=== PATIENT | female | born 1945 | race Two or more races ===

== ENCOUNTER 2022-01-30 19:18 | Inpatient (IN) | payer MEDICARE, OTHER ==
[~2022-01-30] VITALS: Ht 162.6 cm; Wt 62.6 kg
[2022-01-30] MEDS ORDERED: cefTRIAXone SOD 1,000 MG VL IV ONE (20:15)
[2022-01-30 20:19] LABS: Basophils # (auto) 0 10 ^3/uL (0-0.2); Basophils % (auto) 0.2 % (0.0-2.0); Eosinophils # (auto) 0 10 ^3/uL (0-0.8); Eosinophils % (auto) 0.1 % (0.0-7.0); Hematocrit 31.8 % (36.0-46.0); Hemoglobin 10.2 g/dL (12.2-16.2); Lymphocytes # (auto) 0.4 10 ^3/uL (0.4-5.4); Lymphocytes % (auto) 4.2 % (10.0-50.0); Mean Corpuscular Hemoglobin 28.6 pg (28.0-32.0); Mean Corpuscular Volume 89.5 fL (80.0-100.0); Monocytes # (auto) 0.6 10 ^3/uL (0-1.3); Monocytes % (auto) 6.2 % (0.0-12.0); Neutrophils # (auto) 8.5 10 ^3/uL (1.6-8.6); Neutrophils % (auto) 89.3 % (37.0-80.0); Nucleated Red Blood Cells % 0.4 %; Red Blood Cells 3.55 10^6/uL (4.0-5.20); Red Cell Distribution Width 17.5 % (11.8-14.3); White Blood Cell 9.5 10^3/uL (4.4-10.8)
[2022-01-30 20:41] LABS: Albumin 2.9 g/dL (3.4-5.0); Calcium 8.1 mg/dL (8.5-10.1)
[2022-01-30] MEDS ORDERED: dilTIAZem HCL 50 MG/10 ML VIAL IV ONE ×2 (20:44→21:13)
[2022-01-30 20:45] LABS: BUN/Creatinine Ratio 16.9; Bilirubin, Total 1.1 mg/dL (0.2-1.0); Total Protein 6.1 g/dL (6.4-8.2)
[2022-01-30] MEDS ORDERED: dilTIAZem 25 MG/5 ML VIAL IV ONE ×3 (20:45→21:15)
[2022-01-30 21:13] LABS: Lactic Acid w/Reflex 2.3 mmol/L (0.4-2.0)
[2022-01-30] MEDS ORDERED: AMIODARONE HCL 150 MG in D5W 5% 100 ML IV ONE (21:45)
[2022-01-30] MEDS ORDERED: SODIUM CHLORIDE 0.9% 1,000 ML IV ONE (21:45)
[2022-01-30] MEDS ORDERED: AMIODARONE 450mg/250ml AE 250 ML IV SCH (22:00)
[2022-01-30] MEDS ORDERED: AMIODARONE HCL (50 MG/ ML) 3 ML VIAL IV ONE (22:16)
[2022-01-30 23:12] LABS: Urine Bacteria NONE SEEN /hpf (None Seen); Urine Blood Negative /uL (Negative); Urine Hyaline Cast MOD /lpf (0 - 2); Urine Mucus FEW (None Seen); Urine Specific Gravity 1.018 (1.001-1.035); Urine WBC 1 /hpf (0 - 5)
[2022-01-30] MEDS ORDERED: MIDAZOLAM HCL 2MG/2ML 2ml VIAL (1mg/ml) IV ONE (23:30)
[2022-01-31] VITALS (63 sets, daily range): BP systolic 82–170; BP diastolic 57–115
[2022-01-31] MEDS ORDERED: DEXTROSE (50%) 50ML SYRG IV PRN (00:30)
[2022-01-31] MEDS ORDERED: ALBUMIN 25% 100 ML IV ONE (00:30)
[2022-01-31] MEDS ORDERED: ONDANSETRON HCL 4 MG/2 ML VIAL IV PRN (00:30)
[2022-01-31] MEDS ORDERED: ACETAMINOPHEN 325 MG TAB PO PRN (00:30)
[2022-01-31] MEDS ORDERED: DOCUSATE SOD 100 MG CAP PO PRN (00:30)
[2022-01-31] MEDS ORDERED: IOHEXOL 350 MG/ML 100ML IJ ONE ×3 (02:48→14:41)
[2022-01-31] MEDS ORDERED: ETOMIDATE (2MG/ML) 20ML VIAL IV ONE ×2 (03:37→03:45)
[2022-01-31] MEDS ORDERED: ROCURONIUM 10MG/ML 10ML VIAL IV ONE ×2 (03:37→03:45)
[2022-01-31] MEDS: POTASSIUM CHL 20MEQ/100ML 100 ML IV SCH ×4 (04:07→18:33)
[2022-01-31] MEDS ORDERED: MORPHINE SULFATE INJ 2 MG/ml SYRG IV PRN (04:30)
[2022-01-31] MEDS ORDERED: NITROGLYCERIN 0.4 MG SL TAB SL PRN (04:30)
[2022-01-31] MEDS: AMIODARONE 450mg/250ml AE 250 ML IV SCH ×2 (04:34→21:28)
[2022-01-31] MEDS: hydrALAZINE HCL 20 MG/ML VL IV PRN (05:33)
[2022-01-31] MEDS: PROPOFOL 100 ML IV SCH (06:06)
[2022-01-31] MEDS: ACCU-CHEK COMFORT CURVE STRIP VI SCH ×4 (06:45→23:05)
[2022-01-31] MEDS: InsuLIN REG 1unit/0.01ml Soln (100units/ml) SC SCH ×4 (06:51→22:00)
[2022-01-31 09:52] LABS: Basophils # (auto) 0 10 ^3/uL (0-0.2); Basophils % (auto) 0.2 % (0.0-2.0); Eosinophils # (auto) 0 10 ^3/uL (0-0.8); Hematocrit 29.4 % (36.0-46.0); Hemoglobin 9.4 g/dL (12.2-16.2); Lymphocytes # (auto) 0.4 10 ^3/uL (0.4-5.4); Lymphocytes % (auto) 2.6 % (10.0-50.0); Mean Corpuscular Hemoglobin 28.5 pg (28.0-32.0); Mean Corpuscular Hgb Conc. 31.9 g/dL (32.0-36.0); Mean Corpuscular Volume 89.4 fL (80.0-100.0); Monocytes # (auto) 1.2 10 ^3/uL (0-1.3); Monocytes % (auto) 8.4 % (0.0-12.0); Neutrophils # (auto) 13.1 10 ^3/uL (1.6-8.6); Neutrophils % (auto) 88.8 % (37.0-80.0); Nucleated Red Blood Cells % 0.4 %; Red Blood Cells 3.29 10^6/uL (4.0-5.20); Red Cell Distribution Width 17.1 % (11.8-14.3); White Blood Cell 14.8 10^3/uL (4.4-10.8)
[2022-01-31 10:00] LABS: Albumin 2.5 g/dL (3.4-5.0); Calcium 7.5 mg/dL (8.5-10.1); Potassium 3.3 mmol/L (3.5-5.1)
[2022-01-31 10:04] LABS: BUN/Creatinine Ratio 18.5; Bilirubin, Total 0.7 mg/dL (0.2-1.0); Total Protein 5.3 g/dL (6.4-8.2)
[2022-01-31] MEDS ORDERED: NOREPINEPHRINE 8 MG/250ML KIT 250 ML IV ONE (10:36)
[2022-01-31] MEDS: NOREPINEPHRINE 8 MG/250ML KIT 250 ML IV SCH (10:45)
[2022-01-31] MEDS: ASPirin 81 mg TAB PO SCH (11:28)
[2022-01-31] MEDS: FAMOTIDINE (10MG/ML) 2ML VL IV SCH (11:28)
[2022-01-31] MEDS: HEPARIN SODIUM (PORCINE) 5000 UNITS/ML 1ML VIAL SC SCH ×2 (11:29→22:59)
[2022-01-31] MEDS ORDERED: SODIUM CHLORIDE 0.9% 1,000 ML IV ONE (11:30)
[2022-01-31] MEDS ORDERED: ONDA-144 PO (12:56)
[2022-01-31] MEDS ORDERED: AMLO-489 PO (12:56)
[2022-01-31] MEDS ORDERED: LOSA25TA38 PO (12:56)
[2022-01-31] MEDS ORDERED: PROC25RS RC (12:56)
[2022-01-31] MEDS ORDERED: CHLO25TA2 PO (12:57)
[2022-01-31] MEDS ORDERED: CHOL200010 PO (12:57)
[2022-01-31] MEDS: cefTRIAXone 1GM/50ML D5W 50 ML IV SCH (21:15)
[2022-01-31] MEDS: fentaNYL Drip 2500mCg/250mlNS 250 ML IV SCH (23:51)
[2022-02-01] VITALS (102 sets, daily range): BP systolic 87–124; BP diastolic 56–85
[2022-02-01] MEDS: fentaNYL Drip 2500mCg/250mlNS 250 ML IV SCH (03:45)
[2022-02-01 04:00] LABS: Basophils # (auto) 0 10 ^3/uL (0-0.2); Basophils % (auto) 0.3 % (0.0-2.0); Eosinophils # (auto) 0 10 ^3/uL (0-0.8); Eosinophils % (auto) 0.1 % (0.0-7.0); Hematocrit 27.9 % (36.0-46.0); Hemoglobin 8.9 g/dL (12.2-16.2); Lymphocytes # (auto) 0.4 10 ^3/uL (0.4-5.4); Lymphocytes % (auto) 3.3 % (10.0-50.0); Mean Corpuscular Hemoglobin 28.8 pg (28.0-32.0); Mean Corpuscular Hgb Conc. 31.9 g/dL (32.0-36.0); Mean Corpuscular Volume 90.2 fL (80.0-100.0); Monocytes # (auto) 0.9 10 ^3/uL (0-1.3); Monocytes % (auto) 7.4 % (0.0-12.0); Neutrophils % (auto) 88.9 % (37.0-80.0); Nucleated Red Blood Cells % 0.4 %; Red Blood Cells 3.09 10^6/uL (4.0-5.20); Red Cell Distribution Width 17.6 % (11.8-14.3); White Blood Cell 12.3 10^3/uL (4.4-10.8)
[2022-02-01 04:13] LABS: Albumin 2.2 g/dL (3.4-5.0); Calcium 7.3 mg/dL (8.5-10.1); Potassium 3.5 mmol/L (3.5-5.1)
[2022-02-01 04:16] LABS: Bilirubin, Total 0.5 mg/dL (0.2-1.0); Total Protein 4.8 g/dL (6.4-8.2)
[2022-02-01] MEDS: ACCU-CHEK COMFORT CURVE STRIP VI SCH ×4 (06:06→23:59)
[2022-02-01] MEDS: InsuLIN REG 1unit/0.01ml Soln (100units/ml) SC SCH ×4 (06:06→22:00)
[2022-02-01] MEDS: PROPOFOL 100 ML IV SCH ×3 (06:10→19:56)
[2022-02-01] MEDS: AMIODARONE 450mg/250ml AE 250 ML IV SCH (09:14)
[2022-02-01] MEDS: ASPirin 81 mg TAB PO SCH (09:20)
[2022-02-01] MEDS: FAMOTIDINE (10MG/ML) 2ML VL IV SCH (09:20)
[2022-02-01 09:22] LABS: Hepatitis B Surface Antibody Negative (Negative)
[2022-02-01] MEDS: HEPARIN SODIUM (PORCINE) 5000 UNITS/ML 1ML VIAL SC SCH ×2 (09:24→21:53)
[2022-02-01 09:59] LABS: Hepatitis A Total Antibody Positive (Negative)
[2022-02-01] MEDS: NOREPINEPHRINE 8 MG/250ML KIT 250 ML IV SCH (10:33)
[2022-02-01] MEDS ORDERED: FUROSEMIDE 40 MG/4 ML VIAL IV ONE (12:30)
[2022-02-01 13:06] LABS: Hepatitis C Antibody Negative (Negative)
[2022-02-01] MEDS ORDERED: DEXTROSE (50%) 50ML SYRG IV PRN (15:30)
[2022-02-01] MEDS ORDERED: POTASSIUM EFFERVESENT TAB 25 MEQ GT ONE (16:00)
[2022-02-01] MEDS: cefTRIAXone 1GM/50ML D5W 50 ML IV SCH (20:46)
[2022-02-01] MEDS: metroNIDAZOLE 500MG/100ML 100 ML IV SCH (22:16)
[2022-02-02] VITALS (107 sets, daily range): BP systolic 85–134; BP diastolic 56–88
[2022-02-02] MEDS: fentaNYL Drip 2500mCg/250mlNS 250 ML IV SCH (03:45)
[2022-02-02 04:12] LABS: Basophils # (auto) 0 10 ^3/uL (0-0.2); Basophils % (auto) 0.1 % (0.0-2.0); Eosinophils # (auto) 0 10 ^3/uL (0-0.8); Hematocrit 29.6 % (36.0-46.0); Hemoglobin 9.5 g/dL (12.2-16.2); Lymphocytes # (auto) 0.4 10 ^3/uL (0.4-5.4); Lymphocytes % (auto) 2.5 % (10.0-50.0); Mean Corpuscular Hemoglobin 28.2 pg (28.0-32.0); Mean Corpuscular Volume 88.1 fL (80.0-100.0); Monocytes # (auto) 1.2 10 ^3/uL (0-1.3); Monocytes % (auto) 7.4 % (0.0-12.0); Neutrophils # (auto) 14.2 10 ^3/uL (1.6-8.6); Nucleated Red Blood Cells % 0.1 %; Red Blood Cells 3.36 10^6/uL (4.0-5.20); Red Cell Distribution Width 17.4 % (11.8-14.3); White Blood Cell 15.8 10^3/uL (4.4-10.8)
[2022-02-02 04:31] LABS: INR 1.13 (0.9-1.15); Partial Thromboplastin Time 30.5 sec (24.6-33.4)
[2022-02-02 04:32] LABS: Calcium 7.5 mg/dL (8.5-10.1); Potassium 3.2 mmol/L (3.5-5.1)
[2022-02-02 04:38] LABS: Albumin 2.2 g/dL (3.4-5.0); BUN/Creatinine Ratio 15.9; Bilirubin, Total 0.6 mg/dL (0.2-1.0); Total Protein 5.2 g/dL (6.4-8.2)
[2022-02-02] MEDS: InsuLIN REG 1unit/0.01ml Soln (100units/ml) SC SCH ×6 (06:00→23:49)
[2022-02-02] MEDS: metroNIDAZOLE 500MG/100ML 100 ML IV SCH ×3 (06:01→21:44)
[2022-02-02] MEDS: ACCU-CHEK COMFORT CURVE STRIP VI SCH ×4 (06:01→23:49)
[2022-02-02] MEDS: POTASSIUM CHL 20MEQ/100ML 100 ML IV SCH ×2 (08:13→10:28)
[2022-02-02] MEDS ORDERED: LORazepam 2MG/ML-1ML VIAL IV PRN ×2 (10:15)
[2022-02-02 10:25] LABS: Cholesterol 99 mg/dL (< 200)
[2022-02-02] MEDS: FAMOTIDINE (10MG/ML) 2ML VL IV SCH (10:27)
[2022-02-02 10:28] LABS: HDL Cholesterol 54 mg/dL (40-59); LDL Cholesterol 44 mg/dL (< 100); Triglycerides 75 mg/dL (< 150)
[2022-02-02] MEDS: HEPARIN SODIUM (PORCINE) 5000 UNITS/ML 1ML VIAL SC SCH (10:28)
[2022-02-02] MEDS: ASPirin 81 mg TAB PO SCH (10:28)
[2022-02-02] MEDS: NOREPINEPHRINE 8 MG/250ML KIT 250 ML IV SCH (10:45)
[2022-02-02] MEDS ORDERED: POTASSIUM EFFERVESENT TAB 25 MEQ GT ONE (15:15)
[2022-02-02] MEDS ORDERED: FUROSEMIDE 20 MG/2 ML VIAL IV ONE (15:15)
[2022-02-02] MEDS: cefTRIAXone 1GM/50ML D5W 50 ML IV SCH (20:52)
[2022-02-02] MEDS ORDERED: APIXABAN 5 MG TAB PO SCH (22:00)
[2022-02-03] VITALS (86 sets, daily range): BP systolic 95–135; BP diastolic 60–96
[2022-02-03] MEDS: fentaNYL Drip 2500mCg/250mlNS 250 ML IV SCH ×2 (03:45→23:55)
[2022-02-03] MEDS: PROPOFOL 100 ML IV SCH ×2 (03:45→23:55)
[2022-02-03 04:46] LABS: Basophils # (auto) 0 10 ^3/uL (0-0.2); Basophils % (auto) 0.3 % (0.0-2.0); Eosinophils # (auto) 0 10 ^3/uL (0-0.8); Eosinophils % (auto) 0.1 % (0.0-7.0); Hematocrit 27.1 % (36.0-46.0); Hemoglobin 8.8 g/dL (12.2-16.2); Lymphocytes # (auto) 0.3 10 ^3/uL (0.4-5.4); Mean Corpuscular Hgb Conc. 32.6 g/dL (32.0-36.0); Mean Corpuscular Volume 89.1 fL (80.0-100.0); Monocytes # (auto) 0.8 10 ^3/uL (0-1.3); Monocytes % (auto) 5.8 % (0.0-12.0); Neutrophils # (auto) 13.2 10 ^3/uL (1.6-8.6); Neutrophils % (auto) 91.8 % (37.0-80.0); Red Blood Cells 3.04 10^6/uL (4.0-5.20); Red Cell Distribution Width 17.2 % (11.8-14.3); White Blood Cell 14.3 10^3/uL (4.4-10.8)
[2022-02-03 04:56] LABS: BUN/Creatinine Ratio 21.4; Calcium 7.6 mg/dL (8.5-10.1); Potassium 3.5 mmol/L (3.5-5.1)
[2022-02-03] MEDS: metroNIDAZOLE 500MG/100ML 100 ML IV SCH ×2 (05:35→22:16)
[2022-02-03] MEDS: ACCU-CHEK COMFORT CURVE STRIP VI SCH ×4 (05:35→23:54)
[2022-02-03] MEDS: ASPirin 81 mg TAB PO SCH (10:28)
[2022-02-03] MEDS: FAMOTIDINE (10MG/ML) 2ML VL IV SCH (10:29)
[2022-02-03] MEDS: NOREPINEPHRINE 8 MG/250ML KIT 250 ML IV SCH (10:45)
[2022-02-03] MEDS: InsuLIN REG 1unit/0.01ml Soln (100units/ml) SC SCH ×4 (12:00→23:54)
[2022-02-03] MEDS: cefTRIAXone 1GM/50ML D5W 50 ML IV SCH (22:16)
[2022-02-04] VITALS (34 sets, daily range): BP systolic 105–136; BP diastolic 63–85
[2022-02-04] MEDS: InsuLIN REG 1unit/0.01ml Soln (100units/ml) SC SCH ×2 (05:43→11:17)
[2022-02-04] MEDS: ACCU-CHEK COMFORT CURVE STRIP VI SCH ×2 (05:43→11:13)
[2022-02-04] MEDS: metroNIDAZOLE 500MG/100ML 100 ML IV SCH ×3 (05:43→21:42)
[2022-02-04] MEDS: NOREPINEPHRINE 8 MG/250ML KIT 250 ML IV SCH (10:45)
[2022-02-04] MEDS: FAMOTIDINE (10MG/ML) 2ML VL IV SCH (11:12)
[2022-02-04] MEDS: ASPirin 81 mg TAB PO SCH (11:13)
[2022-02-04] MEDS ORDERED: Glucerna 1.2 Cal 1Liter BOTTLE GT SCH (15:30)
[2022-02-04] MEDS: cefTRIAXone 1GM/50ML D5W 50 ML IV SCH (21:00)
[2022-02-05] VITALS (33 sets, daily range): BP systolic 111–153; BP diastolic 68–102
[2022-02-05] MEDS: PROPOFOL 100 ML IV SCH (03:45)
[2022-02-05 04:32] LABS: Basophils # (auto) 0.2 10 ^3/uL (0-0.2); Basophils % (auto) 1.4 % (0.0-2.0); Eosinophils # (auto) 0.1 10 ^3/uL (0-0.8); Eosinophils % (auto) 0.4 % (0.0-7.0); Hematocrit 27.8 % (36.0-46.0); Hemoglobin 8.9 g/dL (12.2-16.2); Lymphocytes # (auto) 0.3 10 ^3/uL (0.4-5.4); Lymphocytes % (auto) 2.4 % (10.0-50.0); Mean Corpuscular Hemoglobin 28.4 pg (28.0-32.0); Mean Corpuscular Hgb Conc. 31.8 g/dL (32.0-36.0); Mean Corpuscular Volume 89.2 fL (80.0-100.0); Monocytes # (auto) 0.8 10 ^3/uL (0-1.3); Monocytes % (auto) 6.9 % (0.0-12.0); Neutrophils # (auto) 10.7 10 ^3/uL (1.6-8.6); Neutrophils % (auto) 88.9 % (37.0-80.0); Red Blood Cells 3.12 10^6/uL (4.0-5.20); Red Cell Distribution Width 16.8 % (11.8-14.3)
[2022-02-05 04:49] LABS: Potassium 3.1 mmol/L (3.5-5.1)
[2022-02-05 04:56] LABS: BUN/Creatinine Ratio 29.5; Bilirubin, Total 0.4 mg/dL (0.2-1.0); Calcium 7.9 mg/dL (8.5-10.1); Total Protein 5.3 g/dL (6.4-8.2)
[2022-02-05] MEDS: metroNIDAZOLE 500MG/100ML 100 ML IV SCH ×3 (05:57→22:10)
[2022-02-05] MEDS: FAMOTIDINE (10MG/ML) 2ML VL IV SCH (10:04)
[2022-02-05] MEDS: ASPirin 81 mg TAB PO SCH (10:04)
[2022-02-05] MEDS: NOREPINEPHRINE 8 MG/250ML KIT 250 ML IV SCH (10:45)
[2022-02-05] MEDS: POTASSIUM CHL 20MEQ/100ML 100 ML IV SCH ×2 (11:08→13:38)
[2022-02-05] MEDS ORDERED: POTASSIUM EFFERVESENT TAB 25 MEQ GT ONE (15:30)
[2022-02-05] MEDS ORDERED: FUROSEMIDE 20 MG/2 ML VIAL IV ONE (15:30)
[2022-02-05] MEDS: cefTRIAXone 1GM/50ML D5W 50 ML IV SCH (20:55)
[2022-02-06] VITALS (29 sets, daily range): BP systolic 112–138; BP diastolic 72–91
[2022-02-06] MEDS: PROPOFOL 100 ML IV SCH (03:45)
[2022-02-06 04:40] LABS: BUN/Creatinine Ratio 38.9; Potassium 3.4 mmol/L (3.5-5.1)
[2022-02-06] MEDS: metroNIDAZOLE 500MG/100ML 100 ML IV SCH ×3 (06:35→22:55)
[2022-02-06 07:27] LABS: Basophils # (auto) 0 10 ^3/uL (0-0.2); Basophils % (auto) 0.1 % (0.0-2.0); Eosinophils # (auto) 0.1 10 ^3/uL (0-0.8); Eosinophils % (auto) 0.6 % (0.0-7.0); Hemoglobin 9.4 g/dL (12.2-16.2); White Blood Cell 10.5 10^3/uL (4.4-10.8)
[2022-02-06 07:30] LABS: Lymphocytes # (auto) 0.3 10 ^3/uL (0.4-5.4); Lymphocytes % (auto) 3.3 % (10.0-50.0); Mean Corpuscular Hgb Conc. 30.3 g/dL (32.0-36.0); Mean Corpuscular Volume 92.4 fL (80.0-100.0); Monocytes # (auto) 0.8 10 ^3/uL (0-1.3); Monocytes % (auto) 7.7 % (0.0-12.0); Neutrophils # (auto) 9.3 10 ^3/uL (1.6-8.6); Neutrophils % (auto) 88.3 % (37.0-80.0); Nucleated Red Blood Cells % 0.1 %; Red Blood Cells 3.36 10^6/uL (4.0-5.20); Red Cell Distribution Width 17.4 % (11.8-14.3)
[2022-02-06] MEDS: FAMOTIDINE (10MG/ML) 2ML VL IV SCH (10:35)
[2022-02-06] MEDS: ASPirin 81 mg TAB PO SCH (10:36)
[2022-02-06] MEDS: NOREPINEPHRINE 8 MG/250ML KIT 250 ML IV SCH (10:45)
[2022-02-06] MEDS ORDERED: POTASSIUM CHL 20MEQ/100ML 100 ML IV ONE (13:15)
[2022-02-06] MEDS ORDERED: ENOXAPARIN SOD 40 MG/0.4 ML SYRINGE SC ONE (14:15)
[2022-02-06] MEDS: cefTRIAXone 1GM/50ML D5W 50 ML IV SCH (21:03)
[2022-02-07] VITALS (47 sets, daily range): BP systolic 113–156; BP diastolic 72–110
[2022-02-07] MEDS: PROPOFOL 100 ML IV SCH (00:15)
[2022-02-07] MEDS: metroNIDAZOLE 500MG/100ML 100 ML IV SCH ×3 (05:06→21:40)
[2022-02-07 09:05] LABS: BUN/Creatinine Ratio 55.7; Calcium 8.2 mg/dL (8.5-10.1); Potassium 3.3 mmol/L (3.5-5.1)
[2022-02-07] MEDS: NOREPINEPHRINE 8 MG/250ML KIT 250 ML IV SCH (10:45)
[2022-02-07] MEDS: FAMOTIDINE (10MG/ML) 2ML VL IV SCH (11:22)
[2022-02-07] MEDS: ASPirin 81 mg TAB PO SCH (11:22)
[2022-02-07] MEDS: ENOXAPARIN SOD 40 MG/0.4 ML SYRINGE SC SCH (11:23)
[2022-02-07] MEDS ORDERED: POTASSIUM CHLORIDE 40 MEQ, LIDOCAINE 1% (LOCAL ANESTH.) 4 ML in SODIUM CHL 0.9% 250 ML IV ONE (12:00)
[2022-02-07] MEDS ORDERED: Glucerna 1.2 Cal 1Liter BOTTLE GT SCH (12:15)
[2022-02-07] MEDS: FREE WATER GT SCH ×3 (14:03→21:40)
[2022-02-07] MEDS: cefTRIAXone 1GM/50ML D5W 50 ML IV SCH (21:37)
[2022-02-08] VITALS (60 sets, daily range): BP systolic 115–150; BP diastolic 69–99
[2022-02-08] MEDS: FREE WATER GT SCH ×6 (02:00→21:33)
[2022-02-08] MEDS: PROPOFOL 100 ML IV SCH (03:45)
[2022-02-08] MEDS: metroNIDAZOLE 500MG/100ML 100 ML IV SCH ×3 (05:35→21:33)
[2022-02-08] MEDS: NOREPINEPHRINE 8 MG/250ML KIT 250 ML IV SCH (09:32)
[2022-02-08] MEDS: ASPirin 81 mg TAB PO SCH (09:32)
[2022-02-08] MEDS: FAMOTIDINE (10MG/ML) 2ML VL IV SCH (09:32)
[2022-02-08] MEDS: ENOXAPARIN SOD 40 MG/0.4 ML SYRINGE SC SCH (09:32)
[2022-02-08 09:34] LABS: Basophils # (auto) 0 10 ^3/uL (0-0.2)
[2022-02-08 10:00] LABS: Basophils % (auto) 0.2 % (0.0-2.0); Eosinophils # (auto) 0.4 10 ^3/uL (0-0.8); Eosinophils % (auto) 2.4 % (0.0-7.0); Hematocrit 28.9 % (36.0-46.0); Hemoglobin 9.4 g/dL (12.2-16.2); Lymphocytes # (auto) 0.8 10 ^3/uL (0.4-5.4); Lymphocytes % (auto) 5.2 % (10.0-50.0); Mean Corpuscular Hemoglobin 28.1 pg (28.0-32.0); Mean Corpuscular Hgb Conc. 32.6 g/dL (32.0-36.0); Mean Corpuscular Volume 86.3 fL (80.0-100.0); Monocytes % (auto) 6.8 % (0.0-12.0); Neutrophils # (auto) 12.8 10 ^3/uL (1.6-8.6); Neutrophils % (auto) 85.4 % (37.0-80.0); Nucleated Red Blood Cells % 0.6 %; Red Blood Cells 3.35 10^6/uL (4.0-5.20); Red Cell Distribution Width 18.5 % (11.8-14.3); White Blood Cell 14.9 10^3/uL (4.4-10.8)
[2022-02-08 11:14] LABS: Potassium 4.5 mmol/L (3.5-5.1)
[2022-02-08 11:15] LABS: BUN/Creatinine Ratio 52.5; Calcium 8.1 mg/dL (8.5-10.1)
[2022-02-08 11:17] LABS: Albumin 1.9 g/dL (3.4-5.0); Bilirubin, Total 0.5 mg/dL (0.2-1.0); Magnesium 2.1 mg/dL (1.6-2.6); Total Protein 5.5 g/dL (6.4-8.2)
[2022-02-08] MEDS: cefTRIAXone 1GM/50ML D5W 50 ML IV SCH (21:03)
[2022-02-09] VITALS (47 sets, daily range): BP systolic 110–158; BP diastolic 42–99
[2022-02-09] MEDS: FREE WATER GT SCH ×5 (01:30→18:00)
[2022-02-09 02:44] LABS: BUN/Creatinine Ratio 51.7; Calcium 7.8 mg/dL (8.5-10.1); Potassium 3.2 mmol/L (3.5-5.1)
[2022-02-09] MEDS: PROPOFOL 100 ML IV SCH (03:45)
[2022-02-09] MEDS: metroNIDAZOLE 500MG/100ML 100 ML IV SCH ×3 (05:33→22:04)
[2022-02-09] MEDS: FAMOTIDINE (10MG/ML) 2ML VL IV SCH (09:58)
[2022-02-09] MEDS: ENOXAPARIN SOD 40 MG/0.4 ML SYRINGE SC SCH (09:58)
[2022-02-09] MEDS: ASPirin 81 mg TAB PO SCH (09:59)
[2022-02-09] MEDS: NOREPINEPHRINE 8 MG/250ML KIT 250 ML IV SCH (10:45)
[2022-02-09] MEDS ORDERED: POTASSIUM EFFERVESENT TAB 25 MEQ GT ONE (14:45)
[2022-02-09] MEDS: cefTRIAXone 1GM/50ML D5W 50 ML IV SCH (21:04)
[2022-02-10] VITALS (52 sets, daily range): BP systolic 88–168; BP diastolic 26–94
[2022-02-10] MEDS: FREE WATER GT SCH ×4 (00:06→18:00)
[2022-02-10] MEDS: hydrALAZINE HCL 20 MG/ML VL IV PRN (00:40)
[2022-02-10] MEDS: PROPOFOL 100 ML IV SCH (03:45)
[2022-02-10 04:09] LABS: Basophils # (auto) 0.1 10 ^3/uL (0-0.2); Basophils % (auto) 0.7 % (0.0-2.0); Eosinophils # (auto) 0 10 ^3/uL (0-0.8); Eosinophils % (auto) 0.1 % (0.0-7.0); Hematocrit 31.5 % (36.0-46.0); Hemoglobin 9.8 g/dL (12.2-16.2); Lymphocytes # (auto) 0.3 10 ^3/uL (0.4-5.4); Lymphocytes % (auto) 1.9 % (10.0-50.0); Mean Corpuscular Hgb Conc. 31.1 g/dL (32.0-36.0); Mean Corpuscular Volume 86.7 fL (80.0-100.0); Monocytes # (auto) 0.8 10 ^3/uL (0-1.3); Monocytes % (auto) 5.8 % (0.0-12.0); Neutrophils # (auto) 12.1 10 ^3/uL (1.6-8.6); Neutrophils % (auto) 91.5 % (37.0-80.0); Red Blood Cells 3.64 10^6/uL (4.0-5.20); Red Cell Distribution Width 16.7 % (11.8-14.3); White Blood Cell 13.2 10^3/uL (4.4-10.8)
[2022-02-10 04:19] LABS: Potassium 3.5 mmol/L (3.5-5.1)
[2022-02-10 04:20] LABS: BUN/Creatinine Ratio 44.4; Calcium 8.2 mg/dL (8.5-10.1)
[2022-02-10] MEDS: metroNIDAZOLE 500MG/100ML 100 ML IV SCH ×3 (05:54→21:53)
[2022-02-10] MEDS: ASPirin 81 mg TAB PO SCH (10:05)
[2022-02-10] MEDS: ENOXAPARIN SOD 40 MG/0.4 ML SYRINGE SC SCH (10:05)
[2022-02-10] MEDS: FAMOTIDINE (10MG/ML) 2ML VL IV SCH (10:05)
[2022-02-10] MEDS: NOREPINEPHRINE 8 MG/250ML KIT 250 ML IV SCH (10:45)
[2022-02-10] MEDS: cefTRIAXone 1GM/50ML D5W 50 ML IV SCH (20:46)
[2022-02-11] VITALS (39 sets, daily range): BP systolic 98–152; BP diastolic 30–89
[2022-02-11] MEDS: FREE WATER GT SCH ×4 (00:21→18:10)
[2022-02-11] MEDS: PROPOFOL 100 ML IV SCH (03:45)
[2022-02-11] MEDS: metroNIDAZOLE 500MG/100ML 100 ML IV SCH ×3 (06:14→22:34)
[2022-02-11 07:37] LABS: BUN/Creatinine Ratio 41.8
[2022-02-11] MEDS: ENOXAPARIN SOD 40 MG/0.4 ML SYRINGE SC SCH (09:49)
[2022-02-11] MEDS: FAMOTIDINE (10MG/ML) 2ML VL IV SCH (09:50)
[2022-02-11] MEDS: ASPirin 81 mg TAB PO SCH (09:50)
[2022-02-11] MEDS: ENOXAPARIN SOD 80 MG/0.8ML SYRINGE SC SCH ×2 (10:00→22:00)
[2022-02-11] MEDS: NOREPINEPHRINE 8 MG/250ML KIT 250 ML IV SCH (10:45)
[2022-02-11] MEDS ORDERED: POTASSIUM EFFERVESENT TAB 25 MEQ GT ONE (15:45)
[2022-02-11] MEDS ORDERED: FUROSEMIDE 20 MG/2 ML VIAL IV ONE (15:45)
[2022-02-11] MEDS: cefTRIAXone 1GM/50ML D5W 50 ML IV SCH (20:26)
[2022-02-12] VITALS (20 sets, daily range): BP systolic 114–184; BP diastolic 48–98
[2022-02-12] MEDS ORDERED: METOPROLOL TARTRATE 50 MG TAB PO ONE (00:30)
[2022-02-12] MEDS: FREE WATER GT SCH ×4 (00:40→18:12)
[2022-02-12] MEDS: PROPOFOL 100 ML IV SCH (03:45)
[2022-02-12 04:31] LABS: Anion Gap 10 (5-15); Blood Urea Nitrogen 19 mg/dL (7-18); Calcium 7.3 mg/dL (8.5-10.1); Carbon Dioxide 24 mmol/L (21-32); Chloride 104 mmol/L (98-107); GFR African American 154 mL/min; GFR Non-African American 127 mL/min; Glucose 117 mg/dL (74-106); Magnesium 1.6 mg/dL (1.6-2.6); Potassium 3.5 mmol/L (3.5-5.1); Sodium 138 mmol/L (136-145)
[2022-02-12] MEDS: metroNIDAZOLE 500MG/100ML 100 ML IV SCH ×3 (05:22→22:24)
[2022-02-12] MEDS: hydrALAZINE HCL 20 MG/ML VL IV PRN (05:22)
[2022-02-12] MEDS: POTASSIUM EFFERVESENT TAB 25 MEQ GT SCH (09:50)
[2022-02-12] MEDS: FUROSEMIDE 20 MG/2 ML VIAL IV SCH (09:51)
[2022-02-12] MEDS: FAMOTIDINE (10MG/ML) 2ML VL IV SCH (09:51)
[2022-02-12] MEDS: METOPROLOL TARTRATE 50 MG TAB PO SCH ×2 (09:53→22:25)
[2022-02-12] MEDS: ENOXAPARIN SOD 80 MG/0.8ML SYRINGE SC SCH (09:54)
[2022-02-12] MEDS: MAGNESIUM SULFATE 1GM/100ML 100 ML IV SCH ×2 (16:37→18:12)
[2022-02-12] MEDS: cefTRIAXone 1GM/50ML D5W 50 ML IV SCH (22:24)
[2022-02-13] VITALS (24 sets, daily range): BP systolic 106–146; BP diastolic 41–105
[2022-02-13] MEDS: FREE WATER GT SCH ×4 (00:24→18:15)
[2022-02-13] MEDS: metroNIDAZOLE 500MG/100ML 100 ML IV SCH ×3 (06:29→22:22)
[2022-02-13] MEDS: POTASSIUM EFFERVESENT TAB 25 MEQ GT SCH (09:56)
[2022-02-13] MEDS: FLORASTOR (S. BOULARDII) 250 MG CAP PO SCH (09:56)
[2022-02-13] MEDS: FUROSEMIDE 20 MG/2 ML VIAL IV SCH (09:57)
[2022-02-13] MEDS: FAMOTIDINE (10MG/ML) 2ML VL IV SCH (09:57)
[2022-02-13] MEDS: METOPROLOL TARTRATE 50 MG TAB PO SCH ×2 (09:57→22:23)
[2022-02-13] MEDS ORDERED: levoFLOXacin 500MG 100 ML IV ONE (13:45)
[2022-02-14] VITALS (20 sets, daily range): BP systolic 110–140; BP diastolic 34–94
[2022-02-14] MEDS ORDERED: METOPROLOL TARTRATE 1MG/1ML-5ML VIAL IV PRN ×2 (05:30→06:15)
[2022-02-14] MEDS ORDERED: METOPROLOL TARTRATE 1MG/1ML-5ML VIAL IV ONE ×2 (05:31→06:15)
[2022-02-14] MEDS: FREE WATER GT SCH ×4 (06:15→18:00)
[2022-02-14] MEDS: metroNIDAZOLE 500MG/100ML 100 ML IV SCH ×3 (06:16→22:07)
[2022-02-14 10:01] LABS: Basophils # (auto) 0 10 ^3/uL (0-0.2); Basophils % (auto) 0.1 % (0.0-2.0); Eosinophils # (auto) 0 10 ^3/uL (0-0.8); Eosinophils % (auto) 0.1 % (0.0-7.0); Hematocrit 29.3 % (36.0-46.0); Hemoglobin 9.2 g/dL (12.2-16.2); Lymphocytes # (auto) 0.2 10 ^3/uL (0.4-5.4); Mean Corpuscular Hemoglobin 27.2 pg (28.0-32.0); Mean Corpuscular Hgb Conc. 31.4 g/dL (32.0-36.0); Mean Corpuscular Volume 86.4 fL (80.0-100.0); Monocytes # (auto) 0.7 10 ^3/uL (0-1.3); Monocytes % (auto) 5.8 % (0.0-12.0); Neutrophils # (auto) 10.5 10 ^3/uL (1.6-8.6); Red Blood Cells 3.39 10^6/uL (4.0-5.20); Red Cell Distribution Width 16.5 % (11.8-14.3); White Blood Cell 11.4 10^3/uL (4.4-10.8)
[2022-02-14 10:21] LABS: BUN/Creatinine Ratio 17.9; Calcium 7.6 mg/dL (8.5-10.1)
[2022-02-14 10:26] LABS: Potassium 2.1 mmol/L (3.5-5.1)
[2022-02-14] MEDS: POTASSIUM EFFERVESENT TAB 25 MEQ GT SCH (11:02)
[2022-02-14] MEDS: FLORASTOR (S. BOULARDII) 250 MG CAP PO SCH (11:03)
[2022-02-14] MEDS: METOPROLOL TARTRATE 50 MG TAB PO SCH ×2 (11:03→22:08)
[2022-02-14] MEDS: levoFLOXacin 500MG 100 ML IV SCH (11:03)
[2022-02-14] MEDS: FAMOTIDINE (10MG/ML) 2ML VL IV SCH (11:03)
[2022-02-14] MEDS: FUROSEMIDE 20 MG/2 ML VIAL IV SCH (11:03)
[2022-02-14] MEDS ORDERED: POTASSIUM EFFERVESENT TAB 25 MEQ GT ONE (11:15)
[2022-02-14] MEDS: POTASSIUM CHL 20MEQ/100ML 100 ML IV SCH ×4 (11:28→23:47)
[2022-02-15] VITALS (17 sets, daily range): BP systolic 108–159; BP diastolic 49–118
[2022-02-15] MEDS: POTASSIUM CHL 20MEQ/100ML 100 ML IV SCH (01:47)
[2022-02-15] MEDS: MAGNESIUM SULFATE 1GM/100ML 100 ML IV SCH ×2 (04:20→05:47)
[2022-02-15] MEDS: FREE WATER GT SCH ×5 (06:00→23:35)
[2022-02-15] MEDS: metroNIDAZOLE 500MG/100ML 100 ML IV SCH ×3 (06:01→23:33)
[2022-02-15 09:53] LABS: Potassium 3.4 mmol/L (3.5-5.1)
[2022-02-15] MEDS: FAMOTIDINE (10MG/ML) 2ML VL IV SCH (10:32)
[2022-02-15] MEDS: POTASSIUM EFFERVESENT TAB 25 MEQ GT SCH (10:33)
[2022-02-15] MEDS: FLORASTOR (S. BOULARDII) 250 MG CAP PO SCH (10:33)
[2022-02-15] MEDS: METOPROLOL TARTRATE 50 MG TAB PO SCH ×2 (10:34→23:35)
[2022-02-15] MEDS: levoFLOXacin 500MG 100 ML IV SCH (10:35)
[2022-02-15 10:46] LABS: Eosinophils # (auto) 0 10 ^3/uL (0-0.8); Monocytes # (auto) 0.8 10 ^3/uL (0-1.3)
[2022-02-15 10:51] LABS: Basophils # (auto) 0.1 10 ^3/uL (0-0.2); Basophils % (auto) 0.5 % (0.0-2.0); Eosinophils % (auto) 0.2 % (0.0-7.0); Hematocrit 28.1 % (36.0-46.0); Lymphocytes # (auto) 0.4 10 ^3/uL (0.4-5.4); Lymphocytes % (auto) 3.2 % (10.0-50.0); Mean Corpuscular Hemoglobin 27.4 pg (28.0-32.0); Mean Corpuscular Hgb Conc. 31.9 g/dL (32.0-36.0); Mean Corpuscular Volume 86.1 fL (80.0-100.0); Neutrophils # (auto) 9.9 10 ^3/uL (1.6-8.6); Neutrophils % (auto) 89.1 % (37.0-80.0); Red Blood Cells 3.27 10^6/uL (4.0-5.20); Red Cell Distribution Width 16.3 % (11.8-14.3); White Blood Cell 11.2 10^3/uL (4.4-10.8)
[2022-02-15] MEDS ORDERED: POTASSIUM CHL 20MEQ/100ML 100 ML IV ONE (16:45)
[2022-02-16 05:00] VITALS: BP 155/100
[2022-02-16] MEDS: metroNIDAZOLE 500MG/100ML 100 ML IV SCH (06:03)
[2022-02-16] MEDS: hydrALAZINE HCL 20 MG/ML VL IV PRN (06:05)
[2022-02-16] MEDS: FREE WATER GT SCH (06:25)
[2022-02-16 09:00] VITALS: BP 159/82
[2022-02-16] MEDS: levoFLOXacin 500MG 100 ML IV SCH (09:57)
[2022-02-16] MEDS: FAMOTIDINE (10MG/ML) 2ML VL IV SCH (09:57)
[2022-02-16] MEDS: METOPROLOL TARTRATE 50 MG TAB PO SCH (09:58)
[2022-02-16] MEDS: FLORASTOR (S. BOULARDII) 250 MG CAP PO SCH (09:58)
[2022-02-16 13:03] VITALS: BP 139/52
[2022-02-16 17:07] VITALS: BP 104/74
== END 2022-02-16 17:20 | disposition hospice, home (50) | DRG 207 ==
LOC: ER 19:18 → EDBD 19:18 → OVERFLOW 01-31 04:22 → ICU WEST 01-31 09:53 → TELE-CENTR 02-15 16:34
PROVIDERS: ADMIT Nurse Practitioner Family; ATTEND Internal Medicine
PROC: 05HN33Z Insertion of Infusion Device into Left Internal Jugular Vein, Percutaneous Approach (ICD-10-PCS; principal; 2022-01-31)
PROC: 5A1955Z Respiratory Ventilation, Greater than 96 Consecutive Hours (ICD-10-PCS; 2022-01-31)
PROC: 0BH17EZ Insertion of Endotracheal Airway into Trachea, Via Natural or Artificial Opening (ICD-10-PCS; 2022-01-31)
PROC: B54NZZA Ultrasonography of Left Upper Extremity Veins, Guidance (ICD-10-PCS; 2022-01-31)
PROC: 02HV33Z Insertion of Infusion Device into Superior Vena Cava, Percutaneous Approach (ICD-10-PCS; 2022-01-31)
PROC: B548ZZA Ultrasonography of Superior Vena Cava, Guidance (ICD-10-PCS; 2022-01-31)
DX: J96.01 Acute respiratory failure with hypoxia (principal); G92.9 Unspecified toxic encephalopathy; I50.41 Acute combined systolic (congestive) and diastolic (congestive) heart failure; I21.A1 Myocardial infarction type 2; N17.0 Acute kidney failure with tubular necrosis; I63.9 Cerebral infarction, unspecified; N39.0 Urinary tract infection, site not specified; E87.2 Acidosis; G40.201 Localization-related (focal) (partial) symptomatic epilepsy and epileptic syndromes with complex partial seizures, not intractable, with status epilepticus; Z66 Do not resuscitate; E87.6 Hypokalemia; I95.9 Hypotension, unspecified; Z20.822 Contact with and (suspected) exposure to COVID-19; D64.9 Anemia, unspecified; E78.00 Pure hypercholesterolemia, unspecified; E11.9 Type 2 diabetes mellitus without complications; I11.0 Hypertensive heart disease with heart failure; I48.0 Paroxysmal atrial fibrillation; K80.20 Calculus of gallbladder without cholecystitis without obstruction; K76.0 Fatty (change of) liver, not elsewhere classified; E04.1 Nontoxic single thyroid nodule; E88.09 Other disorders of plasma-protein metabolism, not elsewhere classified; E78.5 Hyperlipidemia, unspecified; Z79.01 Long term (current) use of anticoagulants; Z51.5 Encounter for palliative care; Z85.048 Personal history of other malignant neoplasm of rectum, rectosigmoid junction, and anus; Z88.5 Allergy status to narcotic agent
CPT/HCPCS: 36415; 36600; 70450; 70460; 70491; 70551; 71045; 71260; 74176; 76536; 76705; 80048; 80053; 80061; 81001; 82378; 82805; 82962; 83036; 83605; 83735; 83880; 84132; 84484; 85025; 85610; 85730; 86704; 86706; 86708; 86803; 87040; 87070; 87077; 87081; 87186; 87205; 87340; 87493; 93005; 93306; 93925; 94003; 94640; 95819; 96374; 96375; 96376; 99291; A4618; G0378; J0696; J1815; J1956; J2001; J2250; J2704; J3480; J3490; J7060